=== PATIENT | female | born 1945 | race Caucasian/White ===

== ENCOUNTER → 2017-08-06 | Outpatient (CLI) | payer MEDICARE, OTHER ==
[2017-08-06 09:06] LABS: BUN/CREATININE RATIO 24.1 (6.0-26.0); CALCIUM 9.2 mg/dL (8.4-10.2); POTASSIUM 3.8 mmol/L (3.6-5.0); TOTAL BILIRUBIN 1.6 mg/dL (0.2-1.3); TOTAL PROTEIN 7.2 g/dL (6.3-8.2)
== END ==
LOC: LAB 08:36
PROVIDERS: Family Medicine
DX: I10 Essential (primary) hypertension (principal); N18.9 Chronic kidney disease, unspecified; R61 Generalized hyperhidrosis; E78.5 Hyperlipidemia, unspecified; Z85.828 Personal history of other malignant neoplasm of skin; Z88.4 Allergy status to anesthetic agent; Z88.1 Allergy status to other antibiotic agents

== ENCOUNTER → 2017-12-19 | Outpatient (CLI) | payer MEDICARE, OTHER | LOC: MAMMO 09:08 | DX: Z12.31 Encounter for screening mammogram for malignant neoplasm of breast (principal) ==

== ENCOUNTER → 2018-03-04 | Outpatient (CLI) | payer MEDICARE, OTHER ==
[~2018-03-04] MED LIST: ASPIRIN E.C. 8181 MG; ESTRADIOL0.5 M1 PO; MIRALAX17 GM PO; OMEGA 3 FISH O1 EACH PO; PRAVACHOL 20MG20 MG PO; PRINIVIL5 M1 PO
[2018-03-04 09:15] LABS: CALCIUM 9.4 mg/dL (8.4-10.2)
== END ==
LOC: LAB 08:40
PROVIDERS: Internal Medicine
DX: C85.90 Non-Hodgkin lymphoma, unspecified, unspecified site (principal); I12.9 Hypertensive chronic kidney disease with stage 1 through stage 4 chronic kidney disease, or unspecified chronic kidney disease; N18.3 Chronic kidney disease, stage 3 (moderate)

== ENCOUNTER → 2018-03-06 | Outpatient (CLI) | payer MEDICARE, OTHER ==
[~2018-03-06] VITALS: Ht 160 cm; Wt 58.6 kg
[2018-03-06 10:03] VITALS: BP 130/82
[2018-03-06 11:52] LABS: EOS % 0.7 % (1.0-5.0); HEMATOCRIT 48.7 % (37.0-47.0); HEMOGLOBIN 16.9 g/dL (12.5-16.0); LYMPH# 1.3 (1.50-4.00); MEAN CELL VOLUME 94 fl (78-100); MEAN CORPUSCULAR HEMOGLOBIN 32 pg (27-31); MEAN CORPUSCULAR HGB CONC 35 g/dL (33-37); MEAN PLATELET VOLUME 10.9 fl (7.4-10.4); MONO # 0.5 (0.20-0.80); NEU # 2.3 (1.40-6.50); PLATELET COUNT 180 K/mm3 (130-400); RED BLOOD COUNT 5.21 M/mm3 (4.10-5.30); RED CELL DISTRIBUTION WIDTH 12.8 % (11.5-14.5); WHITE BLOOD COUNT 4.2 K/mm3 (4.8-10.8)
[2018-03-06 13:08] LABS: ERYTHROCYTE SEDIMENTATION RATE 6 mm/hr (0-30)
[2018-03-06 14:14] LABS: ALBUMIN 4.5 g/dL (3.5-5.0); DIRECT BILIRUBIN 0.6 mg/dL (0.0-0.4); TOTAL BILIRUBIN 1.7 mg/dL (0.2-1.3); TOTAL PROTEIN 7.8 g/dL (6.3-8.2)
[2018-03-06 15:03] LABS: URINE APPEARANCE CLEAR; URINE BILIRUBIN NEGATIVE (NEGATIVE); URINE BLOOD NEGATIVE (NEGATIVE); URINE COLOR YELLOW; URINE GLUCOSE NEGATIVE (NEGATIVE); URINE KETONE NEGATIVE (NEGATIVE); URINE LEUKOCYTE ESTERASE NEGATIVE (NEGATIVE); URINE NITRATE NEGATIVE (NEGATIVE); URINE PROTEIN(semi-quant) NEGATIVE (NEGATIVE); URINE UROBILINOGEN NORMAL (NORMAL); URINE WBC 0-1 /hpf (0-3)
== END ==
LOC: LAB 08:49 → AMSURD 08:49
PROVIDERS: Family Medicine
DX: Z01.818 Encounter for other preprocedural examination (principal); M17.11 Unilateral primary osteoarthritis, right knee; I12.9 Hypertensive chronic kidney disease with stage 1 through stage 4 chronic kidney disease, or unspecified chronic kidney disease; N18.9 Chronic kidney disease, unspecified; M47.816 Spondylosis without myelopathy or radiculopathy, lumbar region

== ENCOUNTER → 2018-03-08 | Outpatient (CLI) | payer MEDICARE, OTHER ==
[2018-03-06 10:03] VITALS: BP 130/82
== END ==
LOC: RAD 09:22
DX: E80.6 Other disorders of bilirubin metabolism (principal); R79.89 Other specified abnormal findings of blood chemistry

== ENCOUNTER → 2018-03-12 | Outpatient (CLI) | payer MEDICARE, OTHER ==
[2018-03-06 10:03] VITALS: BP 130/82
[2018-03-12 09:40] LABS: EOS % 0.9 % (1.0-5.0); HEMATOCRIT 44.8 % (37.0-47.0); HEMOGLOBIN 15.7 g/dL (12.5-16.0); LYMPH# 1.5 (1.50-4.00); MEAN CELL VOLUME 92 fl (78-100); MEAN CORPUSCULAR HEMOGLOBIN 32 pg (27-31); MEAN CORPUSCULAR HGB CONC 35 g/dL (33-37); MONO # 0.5 (0.20-0.80); NEU # 2.3 (1.40-6.50); PLATELET COUNT 177 K/mm3 (130-400); RED BLOOD COUNT 4.85 M/mm3 (4.10-5.30); RED CELL DISTRIBUTION WIDTH 12.4 % (11.5-14.5); WHITE BLOOD COUNT 4.4 K/mm3 (4.8-10.8)
== END ==
LOC: LAB 09:00
PROVIDERS: Family Medicine
DX: J01.90 Acute sinusitis, unspecified (principal)

== ENCOUNTER → 2018-03-14 | Outpatient (CLI) | payer MEDICARE, OTHER ==
[2018-03-06 10:03] VITALS: BP 130/82
== END ==
LOC: PT 13:25
DX: Z01.818 Encounter for other preprocedural examination (principal)

== ENCOUNTER → 2018-04-19 | Outpatient (CLI) | payer MEDICARE, OTHER ==
[2018-03-06 10:03] VITALS: BP 130/82
[2018-04-19 16:33] LABS: EOS # 0.1 (0.04-0.40); HEMOGLOBIN 13.6 g/dL (12.5-16.0); LYMPH# 1.9 (1.50-4.00); MEAN CELL VOLUME 94 fl (78-100); MEAN CORPUSCULAR HEMOGLOBIN 32 pg (27-31); MEAN CORPUSCULAR HGB CONC 34 g/dL (33-37); MEAN PLATELET VOLUME 10.4 fl (7.4-10.4); MONO # 0.8 (0.20-0.80); NEU # 4.4 (1.40-6.50); PLATELET COUNT 262 K/mm3 (130-400); RED BLOOD COUNT 4.27 M/mm3 (4.10-5.30); RED CELL DISTRIBUTION WIDTH 13.3 % (11.5-14.5); WHITE BLOOD COUNT 7.2 K/mm3 (4.8-10.8)
[2018-04-19 16:53] LABS: ALBUMIN 4.1 g/dL (3.5-5.0); CALCIUM 9.3 mg/dL (8.4-10.2); POTASSIUM 4.2 mmol/L (3.6-5.0); TOTAL BILIRUBIN 0.9 mg/dL (0.2-1.3)
[2018-04-19 17:09] LABS: D-DIMER 2.98 mg/L FEU (0.15-0.50)
== END ==
LOC: LAB 15:43 → RAD 15:43
PROVIDERS: Family Medicine
DX: N18.9 Chronic kidney disease, unspecified (principal); R06.09 Other forms of dyspnea; R53.83 Other fatigue; E80.6 Other disorders of bilirubin metabolism; B02.9 Zoster without complications

== ENCOUNTER 2018-05-31 13:30 | Outpatient (RCR) | payer MEDICARE, OTHER ==
[2018-03-06 10:03] VITALS: BP 130/82
== END 2018-06-19 | disposition home or self-care (01) ==
LOC: PT
DX: Z47.1 Aftercare following joint replacement surgery (principal); Z96.651 Presence of right artificial knee joint
CPT/HCPCS: G8978-GP; G8979-GP

== ENCOUNTER → 2018-09-02 | Outpatient (CLI) | payer MEDICARE, OTHER ==
[2018-03-06 10:03] VITALS: BP 130/82
[2018-09-02 09:30] LABS: CALCIUM 9.2 mg/dL (8.4-10.2); POTASSIUM 3.8 mmol/L (3.6-5.0)
== END ==
LOC: LAB 08:42
PROVIDERS: Internal Medicine Nephrology
DX: I12.9 Hypertensive chronic kidney disease with stage 1 through stage 4 chronic kidney disease, or unspecified chronic kidney disease (principal); N18.3 Chronic kidney disease, stage 3 (moderate); Q63.1 Lobulated, fused and horseshoe kidney

== ENCOUNTER → 2018-12-24 | Outpatient (CLI) | payer MEDICARE, OTHER ==
[2018-03-06 10:03] VITALS: BP 130/82
== END ==
LOC: MAMMO 14:14
DX: Z00.00 Encounter for general adult medical examination without abnormal findings (principal); Z12.31 Encounter for screening mammogram for malignant neoplasm of breast

== ENCOUNTER → 2019-01-16 | Outpatient (CLI) | payer MEDICARE, OTHER ==
[2018-03-06 10:03] VITALS: BP 130/82
[2019-01-16 11:07] LABS: EOS # 0.1 (0.04-0.40); EOS % 2.1 % (1.0-5.0); HEMATOCRIT 44.7 % (37.0-47.0); HEMOGLOBIN 15.4 g/dL (12.5-16.0); LYMPH# 1.6 (1.50-4.00); MEAN CELL VOLUME 91 fl (78-100); MEAN CORPUSCULAR HEMOGLOBIN 31 pg (27-31); MEAN CORPUSCULAR HGB CONC 35 g/dL (33-37); MEAN PLATELET VOLUME 10.7 fl (7.4-10.4); MONO # 0.5 (0.20-0.80); NEU # 2.1 (1.40-6.50); PLATELET COUNT 172 K/mm3 (130-400); RED BLOOD COUNT 4.92 M/mm3 (4.10-5.30); RED CELL DISTRIBUTION WIDTH 12.7 % (11.5-14.5); WHITE BLOOD COUNT 4.3 K/mm3 (4.8-10.8)
[2019-01-16 11:08] LABS: ALBUMIN 3.8 g/dL (3.4-4.8); POTASSIUM 3.9 mmol/L (3.5-5.1)
[2019-01-16 11:09] LABS: CALCIUM 8.9 mg/dL (8.3-10.5)
[2019-01-16 11:11] LABS: TOTAL PROTEIN 7.1 g/dL (6.2-8.1)
[2019-01-16 11:13] LABS: TOTAL BILIRUBIN 1.8 mg/dL (0.2-1.2)
== END ==
LOC: LAB 10:47
PROVIDERS: Physician Assistant
DX: Z00.00 Encounter for general adult medical examination without abnormal findings (principal); E78.5 Hyperlipidemia, unspecified; I12.9 Hypertensive chronic kidney disease with stage 1 through stage 4 chronic kidney disease, or unspecified chronic kidney disease; N18.9 Chronic kidney disease, unspecified; Z96.659 Presence of unspecified artificial knee joint

== ENCOUNTER → 2019-03-04 | Outpatient (CLI) | payer MEDICARE, OTHER ==
[2018-03-06 10:03] VITALS: BP 130/82
[2019-03-04 08:52] LABS: POTASSIUM 3.8 mmol/L (3.5-5.1)
[2019-03-04 08:53] LABS: CALCIUM 9.3 mg/dL (8.3-10.5)
[2019-03-05 09:34] LABS: CREATININE OTHER SOURCE 97 mg/dL (())
== END ==
LOC: LAB 08:26
PROVIDERS: Internal Medicine Nephrology
DX: I12.9 Hypertensive chronic kidney disease with stage 1 through stage 4 chronic kidney disease, or unspecified chronic kidney disease (principal); N18.3 Chronic kidney disease, stage 3 (moderate)

== ENCOUNTER → 2019-11-03 | Outpatient (CLI) | payer MEDICARE, OTHER ==
[2018-03-06 10:03] VITALS: BP 130/82
[2019-11-03 10:07] LABS: POTASSIUM 3.9 mmol/L (3.5-5.1)
[2019-11-03 10:08] LABS: CALCIUM 9.1 mg/dL (8.3-10.5)
[2019-11-03 20:49] LABS: CREATININE OTHER SOURCE 70 mg/dL (())
== END ==
LOC: LAB 08:05
PROVIDERS: Internal Medicine Nephrology
DX: I12.9 Hypertensive chronic kidney disease with stage 1 through stage 4 chronic kidney disease, or unspecified chronic kidney disease (principal); N18.3 Chronic kidney disease, stage 3 (moderate); Q63.8 Other specified congenital malformations of kidney

== ENCOUNTER → 2020-01-21 | Outpatient (CLI) | payer MEDICARE, OTHER ==
[2018-03-06 10:03] VITALS: BP 130/82
[2020-01-21 07:42] LABS: HEMATOCRIT 45.2 % (37.0-47.0); HEMOGLOBIN 15.5 g/dL (12.5-16.0); MEAN CELL VOLUME 91 fl (78-100); MEAN CORPUSCULAR HEMOGLOBIN 31 pg (27-31); MEAN CORPUSCULAR HGB CONC 34 g/dL (33-37); MEAN PLATELET VOLUME 10.9 fl (7.4-10.4); PLATELET COUNT 170 K/mm3 (130-400); RED BLOOD COUNT 4.95 M/mm3 (4.10-5.30); RED CELL DISTRIBUTION WIDTH 12.8 % (11.5-14.5); WHITE BLOOD COUNT 4.4 K/mm3 (4.8-10.8)
[2020-01-21 07:58] LABS: ALBUMIN 4.1 g/dL (3.4-4.8); POTASSIUM 3.9 mmol/L (3.5-5.1)
[2020-01-21 08:00] LABS: CALCIUM 9.4 mg/dL (8.3-10.5)
[2020-01-21 08:01] LABS: TOTAL PROTEIN 6.9 g/dL (6.2-8.1)
[2020-01-21 08:03] LABS: TOTAL BILIRUBIN 1.8 mg/dL (0.2-1.2)
[2020-01-21 08:17] LABS: LYMPHOCYTE 36 % (20-51); MONOCYTE 12 % (3-10); NEUTROPHILS 50 % (42-75)
== END ==
LOC: LAB 07:29
PROVIDERS: Physician Assistant
DX: Z00.00 Encounter for general adult medical examination without abnormal findings (principal); Z12.31 Encounter for screening mammogram for malignant neoplasm of breast; Z12.11 Encounter for screening for malignant neoplasm of colon; E80.6 Other disorders of bilirubin metabolism; K59.09 Other constipation; E78.5 Hyperlipidemia, unspecified; I12.9 Hypertensive chronic kidney disease with stage 1 through stage 4 chronic kidney disease, or unspecified chronic kidney disease; N18.3 Chronic kidney disease, stage 3 (moderate)

== ENCOUNTER → 2020-02-05 | Day surgery (SDC) | payer MEDICARE, OTHER ==
[2018-03-06 10:03] VITALS: BP 130/82
== END ==
LOC: MSO 07:30
DX: Z12.11 Encounter for screening for malignant neoplasm of colon (principal); K57.30 Diverticulosis of large intestine without perforation or abscess without bleeding; D50.9 Iron deficiency anemia, unspecified; E78.00 Pure hypercholesterolemia, unspecified; E78.5 Hyperlipidemia, unspecified; M19.90 Unspecified osteoarthritis, unspecified site; I12.9 Hypertensive chronic kidney disease with stage 1 through stage 4 chronic kidney disease, or unspecified chronic kidney disease; N18.3 Chronic kidney disease, stage 3 (moderate); Z88.1 Allergy status to other antibiotic agents; Z96.651 Presence of right artificial knee joint; Z79.52 Long term (current) use of systemic steroids; Z85.828 Personal history of other malignant neoplasm of skin
CPT/HCPCS: G0121; 00812; J2704; J7120

== ENCOUNTER → 2020-03-09 | Outpatient (CLI) | payer MEDICARE, OTHER ==
[2018-03-06 10:03] VITALS: BP 130/82
== END ==
LOC: MAMMO 09:56
DX: Z12.31 Encounter for screening mammogram for malignant neoplasm of breast (principal)

== ENCOUNTER → 2020-11-02 | Outpatient (CLI) | payer MEDICARE ==
[2018-03-06 10:03] VITALS: BP 130/82
[2020-11-02 10:04] LABS: POTASSIUM 3.9 mmol/L (3.5-5.1)
[2020-11-02 10:05] LABS: CALCIUM 9.1 mg/dL (8.3-10.5)
[2020-11-03 01:37] LABS: CREATININE OTHER SOURCE 63 mg/dL (())
== END ==
LOC: LAB 08:57
PROVIDERS: Physician Assistant
DX: I12.9 Hypertensive chronic kidney disease with stage 1 through stage 4 chronic kidney disease, or unspecified chronic kidney disease (principal); N18.30 Chronic kidney disease, stage 3 unspecified; Q63.8 Other specified congenital malformations of kidney

== ENCOUNTER → 2021-06-08 | Outpatient (CLI) | payer MEDICARE ==
[2021-06-08 09:30] LABS: BASO # 0.03 K/mm3 (0.02-0.10); EOS # 0.04 K/mm3 (0.04-0.40); EOS % 0.7 % (1.0-5.0); HEMOGLOBIN 16.3 g/dL (12.5-16.0); LYMPH# 1.33 K/mm3 (1.50-4.00); MEAN CELL VOLUME 95 fl (78-100); MEAN CORPUSCULAR HEMOGLOBIN 32 pg (27-31); MEAN CORPUSCULAR HGB CONC 33 g/dL (33-37); MEAN PLATELET VOLUME 10.5 fl (7.4-10.4); MONO # 0.61 K/mm3 (0.20-0.80); NEU # 4.08 K/mm3 (1.40-6.50); PLATELET COUNT 186 K/mm3 (130-400); RED BLOOD COUNT 5.17 M/mm3 (4.10-5.30); RED CELL DISTRIBUTION WIDTH 12.3 % (11.5-14.5); WHITE BLOOD COUNT 6.1 K/mm3 (4.8-10.8)
[2021-06-08 09:34] LABS: ALBUMIN 4.3 g/dL (3.4-4.8); POTASSIUM 4.3 mmol/L (3.5-5.1)
[2021-06-08 09:35] LABS: CALCIUM 9.9 mg/dL (8.3-10.5)
[2021-06-08 09:37] LABS: TOTAL PROTEIN 8.2 g/dL (6.2-8.1)
== END ==
LOC: LAB 09:05
PROVIDERS: Physician Assistant
DX: Z13.29 Encounter for screening for other suspected endocrine disorder (principal); Z00.00 Encounter for general adult medical examination without abnormal findings; Z13.220 Encounter for screening for lipoid disorders; M43.22 Fusion of spine, cervical region; K90.9 Intestinal malabsorption, unspecified; M48.02 Spinal stenosis, cervical region

== ENCOUNTER → 2021-06-15 | Outpatient (CLI) | payer MEDICARE | LOC: MAMMO 13:27 | DX: Z12.31 Encounter for screening mammogram for malignant neoplasm of breast (principal) ==